=== PATIENT | male | born 2000 | race Caucasian/White ===

== ENCOUNTER 2021-05-28 20:29 | Emergency (ER) | payer BC, MEDICAID ==
[2021-05-28 21:08] LABS: HEMOGLOBIN 12.9 gm/dl (14.0-17.5); RED BLOOD COUNT 4.1 M/UL (4.20-5.50)
[2021-05-28 21:23] LABS: BUN/CREATININE RATIO 15 (0-10)
== END 2021-05-28 23:23 | disposition home or self-care (01) ==
LOC: ER1 20:29
PROVIDERS: Family Medicine
DX: R56.9 Unspecified convulsions (principal); F17.200 Nicotine dependence, unspecified, uncomplicated
CPT/HCPCS: 70450; 71045; 80048; 85025; 93005; 99284